=== PATIENT | female | born 1995 | race Caucasian/White ===

== ENCOUNTER 2024-08-17 13:04 | Emergency (ER) | payer MEDICARE, OTHER, SELFPAY ==
[2024-08-17] VITALS (8 sets, daily range): BP systolic 105–114; BP diastolic 61–80; PULSE 74–87; RESP 16; TEMP 36.5; O2SAT 96–99; BMI 49.2
--- NOTE | 2024-08-17 13:07 | DI.RAD.S_ITS ---
PROCEDURE: XR ANKLE LT MIN 3V INDICATIONS: ankle injury TECHNIQUE: 3 views of the ankle were acquired. COMPARISON: None. FINDINGS: Bones: No fractures or dislocations. Ankle mortise is normally aligned. No suspicious bony lesions. Soft tissues: No tibiotalar joint effusion. Achilles tendon appears normal. IMPRESSION: No acute bony abnormality or significant effusion. Approved by: John Katz M.D. on 08/17/2024 at 13:10
--- NOTE | 2024-08-17 13:16 | DI.RAD.S_ITS ---
PROCEDURE: XR FOOT LT MIN 3V INDICATIONS: trauma TECHNIQUE: 3 views of the foot were acquired. COMPARISON: None. FINDINGS: Bones: No fractures or dislocations. No suspicious bony lesions. Soft tissues: No tibiotalar joint effusion. Achilles tendon appears normal. IMPRESSION: No acute bony abnormality. Approved by: John Katz M.D. on 08/17/2024 at 13:11
--- NOTE | 2024-08-17 13:16 | ED_ITS ---
HPI - Trauma General Chief Complaint: Extremity Injury, Lower Stated Complaint: Ankle Injury Time Seen by Provider: 08/17/24 13:06 History of Present Illness HPI narrative: 28-year-old female presents with ankle injury rolling over it and falling down 3 steps unable to bear weight on at this point brought in by EMS given 100 mics of fentanyl total. Patient denies any head injury dizziness chest pain shortness of breath bowel or bladder incontinence back pain neck pain belly pain or numbness tingling down the legs or arms. Other than what is stated 14 point review of system is negative Related Data Home Medications Medication Instructions Recorded Confirmed gabapentin 100 mg capsule 200 mg PO TID ##0 07/06/16 prazosin 1 mg capsule (Minipress) ##0 07/06/16 trazodone 100 mg tablet 100 mg PO HS ##0 07/06/16 Previous Rx's Medication Instructions Recorded penicillin V potassium 500 mg 500 mg PO Q8H #30 tabs 07/06/16 tablet diclofenac potassium 50 mg tablet 50 mg PO TID PRN pain #30 tabs 08/17/24 Allergies Allergy/AdvReac Type Severity Reaction Status Date / Time No Known Drug Allergies Allergy Verified 08/28/21 21:38 Review of Systems Review of Systems ROS Unobtainable: All systems reviewed & are unremarkable except as noted in HPI and below Exam Narrative Exam Narrative: GENERAL: [28] year old patient appears stated age. Well-developed patient, in mild distress. HEAD: Atraumatic. Normocephalic. EYES: Pupils equal round and reactive. Extraocular motions intact. No scleral icterus. No injection or drainage. ENT: Nose without bleeding, purulent drainage. Throat without erythema, tonsillar hypertrophy or exudate. Airway patent. NECK: Trachea midline. Non tender CARDIOVASCULAR: Regular rate and rhythm without murmurs, gallops, or rubs. RESPIRATORY: Clear to auscultation. Breath sounds equal bilaterally. No wheezes, rales, or rhonchi. GASTROINTESTINAL: Abdomen soft, non-tender, nondistended. EXTREMITIES: LLE lat malleoli region soft tissue swelling post/inf/ motor/sensory intact +2DP +2PT cap refill <2secs BACK: Nontender without deformity or crepitance. No flank tenderness. NEURO: AOx3. GCS 15 nonfocal neuro exam SKIN: No rash or erythema of visible areas Initial Vital Signs Initial Vital Signs: Vital Signs Pulse Rate 75 08/17/24 13:07 Pulse Oximetry 98 08/17/24 13:07 Course Orders Ordered: ED Orders 08/17/24 13:07 XR ankle LT min 3V Stat 08/17/24 13:16 XR foot LT min 3V Stat Vital Signs Vital signs: Vital Signs - 8 hr 08/17/24 13:07 08/17/24 13:09 08/17/24 13:09 Temperature 97.7 F Pulse Rate 75 74 Respiratory Rate 16 Blood Pressure 107/61 Pulse Oximetry 98 98 Oxygen Delivery Method 08/17/24 13:12 08/17/24 13:30 08/17/24 13:30 Temperature 97.7 F Pulse Rate 78 77 Respiratory Rate 16 Blood Pressure 107/61 105/75 Pulse Oximetry 99 97 Oxygen Delivery Method Room Air 08/17/24 14:00 08/17/24 14:00 08/17/24 14:30 Temperature Pulse Rate 87 Respiratory Rate Blood Pressure 107/71 114/72 Pulse Oximetry 96 Oxygen Delivery Method 08/17/24 14:30 Temperature Pulse Rate 75 Respiratory Rate Blood Pressure Pulse Oximetry 97 Oxygen Delivery Method MDM - Trauma Imaging Data Extremity x-ray #1: Radiologist's Impression: [address] [address] XRay Report Signed Patient: Mode Zazueta MR#: [id number] : 1995 Acct:[id number] Age/Sex: 28 / F Date of Service: 08/17/24 Loc: ED Accession Number: [id number] Procedure: XR foot LT min 3V Ordering Provider: Jonathon Leon D.O. PROCEDURE: XR FOOT LT MIN 3V INDICATIONS: trauma TECHNIQUE: 3 views of the foot were acquired. COMPARISON: None. FINDINGS: Bones: No fractures or dislocations. No suspicious bony lesions. Soft tissues: No tibiotalar joint effusion. Achilles tendon appears normal. IMPRESSION: [address] [address] XRay Report Signed Patient: Mode Zazueta MR#: [id number] : 1995 Acct:[id number] Age/Sex: 28 / F Date of Service: 08/17/24 Loc: ED Accession Number: [id number] Procedure: XR ankle LT min 3V Ordering Provider: Jonathon Leon D.O. PROCEDURE: XR ANKLE LT MIN 3V INDICATIONS: ankle injury TECHNIQUE: 3 views of the ankle were acquired. COMPARISON: None. FINDINGS: Bones: No fractures or dislocations. Ankle mortise is normally aligned. No suspicious bony lesions. Soft tissues: No tibiotalar joint effusion. Achilles tendon appears normal. IMPRESSION: No acute bony abnormality or significant effusion. MDM Narrative Medical decision making narrative: All imaging studies reviewed patient was given total fentanyl 100 mics by EMS prior to arrival here. Differential diagnosis includes fracture, dislocation, contusion, sprain. Patient was placed in a ankle stirrup. And to follow up with PCP in 1 week and to return with new or worsening symptoms. D/c home on d iclofenac rx. Discharge Plan Departure Patient Disposition: Home Clinical Impression: Ankle sprain Qualifiers: Encounter type: initial encounter Involved ligament of ankle: anterior talofibular ligament Laterality: left Qualified Code(s): S93.492A - Sprain of other ligament of left ankle, initial encounter Instructions: DI for Ankle Sprain Activity Restrictions/Additional Instructions: Return with new or worsening symptoms. Take your medicines as directed. Follow up PCP in 1 week Prescriptions: New diclofenac potassium 50 mg tablet 50 mg PO TID PRN (Reason: pain) Qty: 30 0RF No Action trazodone 100 MG tablet 100 mg PO HS Qty: 0 prazosin [Minipress] 1 mg capsule Qty: 0 gabapentin 100 MG capsule 200 mg PO TID Qty: 0 penicillin V potassium 500 MG tablet 500 mg PO Q8H Qty: 30 0RF Stand Alone Forms: Patient Portal/API/Survey
== END 2024-08-17 15:45 | disposition home or self-care (01) ==
PROVIDERS: Emergency Provider Family Medicine
DX: S93.492A Sprain of other ligament of left ankle, initial encounter (principal); X50.1XXA Overexertion from prolonged static or awkward postures, initial encounter; W10.9XXA Fall (on) (from) unspecified stairs and steps, initial encounter
CPT/HCPCS: 29540; 73610; 73630; 99281; 99283